=== PATIENT | male | born 1965 | race Two or more races ===

== ENCOUNTER 2016-10-26 14:39 | Emergency (ER) | payer MEDICAID ==
[2016-10-26 18:36] VITALS: BP 126/79
== END 2016-10-26 19:10 | disposition home or self-care (01) ==
LOC: ED 14:39
DX: S01.112A Laceration without foreign body of left eyelid and periocular area, initial encounter (principal); S00.83XA Contusion of other part of head, initial encounter; Y04.0XXA Assault by unarmed brawl or fight, initial encounter; Y93.89 Activity, other specified; Y92.512 Supermarket, store or market as the place of occurrence of the external cause; Y99.8 Other external cause status

== ENCOUNTER 2017-06-13 14:42 | Emergency (ER) | payer MEDICAID ==
[~2017-06-13] VITALS: Ht 175.3 cm; Wt 78.9 kg
[2017-06-13 14:59] VITALS: BP 136/84; Ht 175.3 cm; Wt 78.9 kg
== END 2017-06-13 15:43 | disposition home or self-care (01) ==
LOC: ED 14:42
DX: S61.233A Puncture wound without foreign body of left middle finger without damage to nail, initial encounter (principal); X58.XXXA Exposure to other specified factors, initial encounter; Y93.89 Activity, other specified; Y99.8 Other external cause status; Y92.89 Other specified places as the place of occurrence of the external cause

== ENCOUNTER 2018-06-10 15:31 | Emergency (ER) | payer MEDICAID ==
[~2018-06-10] VITALS: Ht 177.8 cm; Wt 81.6 kg
[~2018-06-10 15:31] MED LIST: CIPRO500 MG PO; COL100 PO; FLA500 PO; LAC PO
[2018-06-10 15:38] VITALS: Ht 177.8 cm; Wt 81.6 kg
[2018-06-10 19:18] VITALS: BP 138/96
== END 2018-06-10 19:18 | disposition home or self-care (01) ==
LOC: ED 15:31
DX: N40.0 Benign prostatic hyperplasia without lower urinary tract symptoms (principal); R32 Unspecified urinary incontinence; Z88.5 Allergy status to narcotic agent; A15.9 Respiratory tuberculosis unspecified